=== PATIENT | male | born 1975 | race Hispanic/Latino ===

== ENCOUNTER 2017-03-06 22:04 | Inpatient (IN) | payer SELFPAY ==
[~2017-03-06] VITALS: Ht 165.1 cm; Wt 78.1 kg
[2017-03-06] MEDS ORDERED: CEFAZOLIN SODIUM 1 GM VIAL ONE (22:56)
[2017-03-06] MEDS ORDERED: IBUPROFEN 400 MG TABLET ONE (23:22)
[2017-03-06 23:40] LABS: BASOPHILS % (AUTO) 0.5 % (0.0-5.0); EOSINOPHILS % (AUTO) 0.6 % (0.0-8.0); HEMATOCRIT 44.1 % (42-54); LYMPHOCYTES % (AUTO) 11.9 % (21.0-51.0); MEAN CORPUSCULAR HEMOGLOBIN 30.9 pg (27.0-33.0); MEAN CORPUSCULAR HGB CONC 34.7 g/dL (32.0-36.0); MEAN CORPUSCULAR VOLUME 89.1 fL (79-99); MONOCYTES % (AUTO) 8.1 % (3.0-13.0); NEUTROPHILS % (AUTO) 78.9 % (40.0-77.0); PLATELET COUNT (AUTO) 250 K/uL (130-400); RED BLOOD CELL COUNT(AUTO) 4.94 MIL/uL (4.50-6.20)
[2017-03-06 23:56] LABS: ALBUMIN 3.5 g/dL (3.5-5.0); BILIRUBIN,TOTAL 0.6 mg/dL (0.2-1.0); CREATININE 1.2 mg/dL (0.5-1.5); POTASSIUM 4.1 mmol/L (3.5-5.1); TOTAL PROTEIN, SERUM 7.6 g/dL (6.0-8.3)
[2017-03-07] MEDS ORDERED: SODIUM CHLORIDE 0.9% 1000ML 1,000 ML IV ONE ×3 (00:04→03:34)
[2017-03-07] MEDS ORDERED: INSULIN HUMULIN R 100 UNIT/ML 3ML ONE ×4 (00:05→17:25)
[2017-03-07 00:34] LABS: ABG BASE EXCESS 0.3 mmol/L (-2.0-3.0); ABG HCO3 24.6 mmol/L (21.0-28.0); ABG PCO2 39 mmHg (35-48)
[2017-03-07] MEDS ORDERED: VANCOMYCIN 1GM+NS 250ML 250 ML IV SCH (02:15)
[2017-03-07] MEDS ORDERED: MORPHINE SULFATE 2 MG/ML 1ML SYG IV PRN (02:15)
[2017-03-07] MEDS ORDERED: HYDRALAZINE HCL 20 MG/ML VIAL IV PRN (02:15)
[2017-03-07] MEDS ORDERED: VANCOMYCIN 1GM+NS 250ML 250 ML IV ONE (03:33)
[2017-03-07] MEDS ORDERED: MEROPENEM 1 GM VIAL ONE ×2 (03:33→19:34)
[2017-03-07] MEDS ORDERED: ZOSYN 3.375GM+NS 50ML 50 ML IV SCH (05:00)
[2017-03-07] MEDS: INSULIN HUMULIN R 100 UNIT/ML 3ML SQ SCH ×4 (07:30→22:12)
[2017-03-07] MEDS: FAMOTIDINE 20MG TAB 20 MG TAB PO SCH ×2 (09:00→21:00)
[2017-03-07] MEDS: ENOXAPARIN SODIUM 40 MG/0.4 ML SYRINGE SQ SCH (09:00)
[2017-03-07] MEDS ORDERED: FAMOTIDINE 20MG TAB 20 MG TAB ONE ×2 (09:18→21:44)
[2017-03-07] MEDS ORDERED: ENOXAPARIN SODIUM 40 MG/0.4 ML SYRINGE SQ ONE (09:18)
[2017-03-07] MEDS ORDERED: VANCOMYCIN PROTOCOL PER PHARMACY IV SCH (11:00)
[2017-03-07] MEDS: SODIUM CHLORIDE 0.9% 1000ML 1,000 ML IV SCH ×3 (12:07→23:55)
[2017-03-07] MEDS ORDERED: ACETAMINOPHEN 325 MG TAB ONE (12:30)
[2017-03-07] MEDS ORDERED: SODIUM CHLORIDE 0.9% 500ML 500 ML IV ONE (19:16)
[2017-03-07 21:56] VITALS: BP 142/86
[2017-03-07] MEDS: MEROPENEM 1 GM VIAL IVP SCH (22:00)
[2017-03-07] MEDS: INSULIN GLARGINE 100 UNITS/ML 10 ML VIAL SQ SCH (22:05)
[2017-03-07] MEDS: ACETAMINOPHEN 325 MG TAB PO PRN (22:13)
[2017-03-08] VITALS: BP 125/78
[2017-03-08 04:00] VITALS: BP 118/78
[2017-03-08 04:15] LABS: MEAN CORPUSCULAR HEMOGLOBIN 32.1 pg (27.0-33.0); MEAN CORPUSCULAR HGB CONC 36.4 g/dL (32.0-36.0); MEAN CORPUSCULAR VOLUME 88.2 fL (79-99); PLATELET COUNT (AUTO) 195 K/uL (130-400); RED BLOOD CELL COUNT(AUTO) 4.08 MIL/uL (4.50-6.20)
[2017-03-08 04:27] LABS: CREATININE 0.9 mg/dL (0.5-1.5); POTASSIUM 3.4 mmol/L (3.5-5.1)
[2017-03-08 04:58] LABS: HEMOGLOBIN A1C 9.9 % (4.0-6.0)
[2017-03-08] MEDS: MEROPENEM 1 GM VIAL IVP SCH ×3 (05:09→22:00)
[2017-03-08] MEDS ORDERED: COMPOUND IV REFRIGERATED 1 EACH IVSOLN MISC PRN ×2 (06:00→07:00)
[2017-03-08] MEDS: INSULIN HUMULIN R 100 UNIT/ML 3ML SQ SCH ×4 (06:21→21:26)
[2017-03-08] MEDS ORDERED: VANCOMYCIN 1.25 GM in SODIUM CHLORIDE 0.9% 250 ML IV SCH (06:30)
[2017-03-08] MEDS: VANCOMYCIN 1.75 GM in SODIUM CHLORIDE 0.9% 250 ML IV SCH ×3 (06:55→22:27)
[2017-03-08 07:00] VITALS: BP 130/83
[2017-03-08] MEDS: ENOXAPARIN SODIUM 40 MG/0.4 ML SYRINGE SQ SCH (09:37)
[2017-03-08] MEDS: FAMOTIDINE 20MG TAB 20 MG TAB PO SCH ×2 (09:37→22:00)
[2017-03-08] MEDS: ACETAMINOPHEN 325 MG TAB PO PRN ×2 (09:38→14:36)
[2017-03-08] MEDS: SODIUM CHLORIDE 0.9% 1000ML 1,000 ML IV SCH ×2 (09:49→18:36)
[2017-03-08 11:00] VITALS: BP 128/70
[2017-03-08] MEDS ORDERED: CHLORDIAZEPOXIDE HCL 25 MG CAP PO PRN (11:30)
[2017-03-08 16:00] VITALS: BP 102/63
[2017-03-08] MEDS ORDERED: INSULIN HUMULIN R 100 UNIT/ML 3ML SQ ONE (17:05)
[2017-03-08 20:00] VITALS: BP 101/62
[2017-03-08] MEDS: INSULIN GLARGINE 100 UNITS/ML 10 ML VIAL SQ SCH (21:26)
[2017-03-09] VITALS (7 sets, daily range): BP systolic 98–120; BP diastolic 53–63
[2017-03-09] MEDS: SODIUM CHLORIDE 0.9% 1000ML 1,000 ML IV SCH ×2 (04:32→15:57)
[2017-03-09] MEDS: MEROPENEM 1 GM VIAL IVP SCH (06:02)
[2017-03-09] MEDS: VANCOMYCIN 1.75 GM in SODIUM CHLORIDE 0.9% 250 ML IV SCH ×2 (06:03→14:00)
[2017-03-09] MEDS: ACETAMINOPHEN 325 MG TAB PO PRN ×3 (06:04→23:29)
[2017-03-09] MEDS: INSULIN HUMULIN R 100 UNIT/ML 3ML SQ SCH ×4 (06:37→21:29)
[2017-03-09] MEDS: ENOXAPARIN SODIUM 40 MG/0.4 ML SYRINGE SQ SCH (08:35)
[2017-03-09] MEDS: FAMOTIDINE 20MG TAB 20 MG TAB PO SCH ×2 (08:35→21:01)
[2017-03-09] MEDS ORDERED: CEFEPIME 1GM+NS 50ML 50 ML IV SCH (09:30)
[2017-03-09] MEDS: HONEY 1 APPL/ML TUBE TP SCH (11:07)
[2017-03-09] MEDS: DIPH,PERTUSS(ACELL),TET VAC/PF 0.5 ML VIAL IM SCH (11:08)
[2017-03-09] MEDS: CEFEPIME HCL 1 GM VIAL IVP SCH ×2 (15:43→22:15)
[2017-03-09] MEDS: ONDANSETRON HCL 4 MG/2 ML VIAL IV PRN (15:50)
[2017-03-09] MEDS: CHLORDIAZEPOXIDE HCL 25 MG CAP PO PRN ×2 (15:50→21:01)
[2017-03-09] MEDS: DiphenhydrAMINE HCL 50 MG/ML VIAL IV PRN (17:33)
[2017-03-09] MEDS: [UNRECOGNIZED DRUG - OTHER] IV SCH (17:34)
[2017-03-09] MEDS: VANCOMYCIN IV SCH (17:34)
[2017-03-09] MEDS: INSULIN GLARGINE 100 UNITS/ML 10 ML VIAL SQ SCH (21:27)
[2017-03-10] MEDS: [UNRECOGNIZED DRUG - OTHER] IV SCH ×2 (01:31→09:47)
[2017-03-10] MEDS: VANCOMYCIN IV SCH ×2 (01:31→09:47)
[2017-03-10] MEDS: SODIUM CHLORIDE 0.9% 1000ML 1,000 ML IV SCH ×3 (01:31→20:07)
[2017-03-10 04:00] VITALS: BP 125/86
[2017-03-10] MEDS ORDERED: DOXYCYCLINE 100MG+NS 250ML 250 ML IV ONE (04:07)
[2017-03-10] MEDS: DOXYCYCLINE 100MG+NS 250ML 250 ML IV SCH ×2 (04:42→17:26)
[2017-03-10] MEDS: CEFEPIME HCL 1 GM VIAL IVP SCH ×3 (05:54→22:20)
[2017-03-10] MEDS: INSULIN HUMULIN R 100 UNIT/ML 3ML SQ SCH ×4 (06:17→21:17)
[2017-03-10] MEDS: DIPH,PERTUSS(ACELL),TET VAC/PF 0.5 ML VIAL IM SCH (07:57)
[2017-03-10 08:00] VITALS: BP 103/56
[2017-03-10] MEDS: ENOXAPARIN SODIUM 40 MG/0.4 ML SYRINGE SQ SCH (09:40)
[2017-03-10] MEDS: FAMOTIDINE 20MG TAB 20 MG TAB PO SCH ×2 (09:41→21:13)
[2017-03-10] MEDS: CHLORDIAZEPOXIDE HCL 25 MG CAP PO PRN (09:55)
[2017-03-10] MEDS: HONEY 1 APPL/ML TUBE TP SCH (09:58)
[2017-03-10] MEDS: ACETAMINOPHEN 325 MG TAB PO PRN (10:02)
[2017-03-10] MEDS: ONDANSETRON HCL 4 MG/2 ML VIAL IV PRN (10:09)
[2017-03-10] MEDS ORDERED: GADOBENATE DIMEGLUMINE 20 ML IV ONE (10:18)
[2017-03-10 12:00] VITALS: BP 103/53
[2017-03-10] MEDS: DiphenhydrAMINE HCL 50 MG/ML VIAL IV PRN (14:54)
[2017-03-10] MEDS ORDERED: BENZONATATE 100 MG CAPSULE PO PRN (15:45)
[2017-03-10 16:00] VITALS: BP 119/59
[2017-03-10] MEDS: METHYLPREDNISOLONE SOD SUCC 40MG/ML 1ML IVP SCH ×2 (17:28→21:13)
[2017-03-10 20:01] VITALS: BP 99/52
[2017-03-10] MEDS: INSULIN GLARGINE 100 UNITS/ML 10 ML VIAL SQ SCH (21:18)
[2017-03-10] MEDS: VANCOMYCIN 1GM+NS 250ML 250 ML IV SCH (22:19)
[2017-03-10 23:19] VITALS: BP 98/48
[2017-03-11 04:31] VITALS: BP 91/54
[2017-03-11] MEDS: DOXYCYCLINE 100MG+NS 250ML 250 ML IV SCH ×2 (04:58→17:21)
[2017-03-11] MEDS: VANCOMYCIN 1GM+NS 250ML 250 ML IV SCH (05:54)
[2017-03-11] MEDS: CEFEPIME HCL 1 GM VIAL IVP SCH (05:54)
[2017-03-11] MEDS: INSULIN HUMULIN R 100 UNIT/ML 3ML SQ SCH ×4 (05:56→20:55)
[2017-03-11] MEDS: SODIUM CHLORIDE 0.9% 1000ML 1,000 ML IV SCH ×2 (06:07→16:07)
[2017-03-11 07:00] VITALS: BP 137/82
[2017-03-11] MEDS: DIPH,PERTUSS(ACELL),TET VAC/PF 0.5 ML VIAL IM SCH (07:08)
[2017-03-11] MEDS: GUAIFENESIN SUGAR-FREE 100 MG/5 ML UDCUP PO PRN (07:58)
[2017-03-11] MEDS: FAMOTIDINE 20MG TAB 20 MG TAB PO SCH ×2 (07:59→20:08)
[2017-03-11] MEDS: METHYLPREDNISOLONE SOD SUCC 40MG/ML 1ML IVP SCH ×2 (08:00→20:08)
[2017-03-11] MEDS: ONDANSETRON HCL 4 MG/2 ML VIAL IV PRN ×2 (08:00→21:38)
[2017-03-11] MEDS: ENOXAPARIN SODIUM 40 MG/0.4 ML SYRINGE SQ SCH (08:01)
[2017-03-11] MEDS: HONEY 1 APPL/ML TUBE TP SCH (08:02)
[2017-03-11 11:00] VITALS: BP 114/75
[2017-03-11 15:49] VITALS: BP 115/72
[2017-03-11] MEDS: DiphenhydrAMINE HCL 50 MG/ML VIAL IV PRN (19:15)
[2017-03-11] MEDS ORDERED: INSULIN GLARGINE 100 UNITS/ML 10 ML VIAL SQ ONE (19:42)
[2017-03-11] MEDS: INSULIN GLARGINE 100 UNITS/ML 10 ML VIAL SQ SCH (20:09)
[2017-03-11 20:56] VITALS: BP 118/73
[2017-03-11 23:41] VITALS: BP 101/58
[2017-03-12 04:18] VITALS: BP 124/74
[2017-03-12] MEDS: DOXYCYCLINE 100MG+NS 250ML 250 ML IV SCH (04:50)
[2017-03-12 04:52] LABS: BASOPHILS % (AUTO) 0.7 % (0.0-5.0); EOSINOPHILS % (AUTO) 0.3 % (0.0-8.0); HEMATOCRIT 34.7 % (42-54); LYMPHOCYTES % (AUTO) 9.2 % (21.0-51.0); MEAN CORPUSCULAR HEMOGLOBIN 31.5 pg (27.0-33.0); MEAN CORPUSCULAR HGB CONC 35.8 g/dL (32.0-36.0); MONOCYTES % (AUTO) 7.4 % (3.0-13.0); NEUTROPHILS % (AUTO) 82.4 % (40.0-77.0); PLATELET COUNT (AUTO) 169 K/uL (130-400); RED BLOOD CELL COUNT(AUTO) 3.94 MIL/uL (4.50-6.20); RED CELL DISTRIBUTION WIDTH 12.3 % (11.0-15.5); WHITE BLOOD COUNT (AUTO) 15.7 K/uL (4.8-10.8)
[2017-03-12 05:08] LABS: ALBUMIN 2.3 g/dL (3.5-5.0); BILIRUBIN,TOTAL 0.6 mg/dL (0.2-1.0); CREATININE 0.9 mg/dL (0.5-1.5); POTASSIUM 3.6 mmol/L (3.5-5.1)
[2017-03-12] MEDS: INSULIN HUMULIN R 100 UNIT/ML 3ML SQ SCH ×4 (06:22→21:32)
[2017-03-12] MEDS: DIPH,PERTUSS(ACELL),TET VAC/PF 0.5 ML VIAL IM SCH (06:36)
[2017-03-12 07:00] VITALS: BP 123/74
[2017-03-12] MEDS ORDERED: DiphenhydrAMINE HCL 50 MG/ML VIAL IV SCH (07:00)
[2017-03-12] MEDS: SODIUM CHLORIDE 0.9% 1000ML 1,000 ML IV SCH ×3 (07:09→23:10)
[2017-03-12] MEDS: METHYLPREDNISOLONE SOD SUCC 40MG/ML 1ML IVP SCH ×2 (08:29→21:25)
[2017-03-12] MEDS: FAMOTIDINE 20MG TAB 20 MG TAB PO SCH ×2 (08:30→21:25)
[2017-03-12] MEDS: ENOXAPARIN SODIUM 40 MG/0.4 ML SYRINGE SQ SCH (08:30)
[2017-03-12] MEDS: HONEY 1 APPL/ML TUBE TP SCH (08:32)
[2017-03-12 09:21] LABS: HEPATITIS A ANTIBODY IGM Negative (Negative); HEPATITIS B CORE IGM Negative (Negative); HEPATITIS Bs ANTIGEN SCREEN P Negative (Negative)
[2017-03-12] MEDS: GUAIFENESIN SUGAR-FREE 100 MG/5 ML UDCUP PO PRN (09:25)
[2017-03-12 11:00] VITALS: BP 128/91
[2017-03-12] MEDS: DiphenhydrAMINE HCL 50 MG/ML VIAL IV PRN ×2 (12:16→21:24)
[2017-03-12 17:29] VITALS: BP 114/62
[2017-03-12 19:00] VITALS: BP 120/76
[2017-03-12] MEDS: INSULIN GLARGINE 100 UNITS/ML 10 ML VIAL SQ SCH (21:34)
[2017-03-12 23:00] VITALS: BP 136/86
[2017-03-13] MEDS: GUAIFENESIN SUGAR-FREE 100 MG/5 ML UDCUP PO PRN ×2 (00:10→08:24)
[2017-03-13 03:00] VITALS: BP 131/87
[2017-03-13] MEDS: INSULIN HUMULIN R 100 UNIT/ML 3ML SQ SCH ×4 (06:37→22:17)
[2017-03-13 07:00] VITALS: BP 142/96
[2017-03-13] MEDS: METHYLPREDNISOLONE SOD SUCC 40MG/ML 1ML IVP SCH ×2 (08:21→22:10)
[2017-03-13] MEDS: ENOXAPARIN SODIUM 40 MG/0.4 ML SYRINGE SQ SCH (08:23)
[2017-03-13] MEDS: FAMOTIDINE 20MG TAB 20 MG TAB PO SCH ×2 (08:23→22:11)
[2017-03-13] MEDS: HONEY 1 APPL/ML TUBE TP SCH (08:24)
[2017-03-13] MEDS: SODIUM CHLORIDE 0.9% 1000ML 1,000 ML IV SCH ×2 (08:24→17:45)
[2017-03-13 11:00] VITALS: BP 153/94
[2017-03-13 14:29] LABS: ROCKY MT SPOTTED FEVER IGG <1:64 (Neg:<1:64); TYPHUS FEVER AB IGG <1:64 (Neg:<1:64)
[2017-03-13 16:00] VITALS: BP 150/98
[2017-03-13 19:00] VITALS: BP 136/88
[2017-03-13] MEDS: INSULIN GLARGINE 100 UNITS/ML 10 ML VIAL SQ SCH (22:18)
[2017-03-13 23:00] VITALS: BP 155/86
[2017-03-14 03:00] VITALS: BP 142/89
[2017-03-14 04:16] LABS: MEAN CORPUSCULAR HEMOGLOBIN 31.7 pg (27.0-33.0); MEAN CORPUSCULAR HGB CONC 35.8 g/dL (32.0-36.0); MEAN CORPUSCULAR VOLUME 88.6 fL (79-99); NUCLEATED RED BLOOD CELLS 0.1 % (0.0-0.19); PLATELET COUNT (AUTO) 205 K/uL (130-400); RED BLOOD CELL COUNT(AUTO) 4.06 MIL/uL (4.50-6.20); WHITE BLOOD COUNT (AUTO) 14.3 K/uL (4.8-10.8)
[2017-03-14 04:42] LABS: ALBUMIN 2.5 g/dL (3.5-5.0); BILIRUBIN,TOTAL 0.6 mg/dL (0.2-1.0); CREATININE 0.7 mg/dL (0.5-1.5); POTASSIUM 3.6 mmol/L (3.5-5.1); TOTAL PROTEIN, SERUM 6.1 g/dL (6.0-8.3)
[2017-03-14] MEDS: SODIUM CHLORIDE 0.9% 1000ML 1,000 ML IV SCH ×2 (05:45→13:24)
[2017-03-14] MEDS: INSULIN HUMULIN R 100 UNIT/ML 3ML SQ SCH ×3 (06:37→18:17)
[2017-03-14 07:00] VITALS: BP 166/98
[2017-03-14] MEDS ORDERED: MEDROL DAY 1 BREAKFAST PO NR (07:30)
[2017-03-14] MEDS: FAMOTIDINE 20MG TAB 20 MG TAB PO SCH (09:56)
[2017-03-14] MEDS: METHYLPREDNISOLONE SOD SUCC 40MG/ML 1ML IVP SCH (09:56)
[2017-03-14] MEDS: HONEY 1 APPL/ML TUBE TP SCH (09:57)
[2017-03-14] MEDS: ENOXAPARIN SODIUM 40 MG/0.4 ML SYRINGE SQ SCH (09:57)
[2017-03-14 11:00] VITALS: BP 160/91
[2017-03-14] MEDS ORDERED: METHYLPREDNISOLONE 4 MG TABLET PO SCH (13:15)
[2017-03-14 16:00] VITALS: BP 158/98
[2017-03-14] MEDS: MEDROL DAY 1 LUNCH AND DINNER PO NR ×2 (18:02→18:03)
[2017-03-14] MEDS ORDERED: MEDROL DAY1 HS PO NR (21:00)
[2017-03-15] MEDS ORDERED: MEDROL DAY 2 BRK PO NR (07:30)
[2017-03-15] MEDS ORDERED: MEDROL DAY 2 LCH PO NR (11:30)
[2017-03-15] MEDS ORDERED: MEDROL DAY 2 DIN PO NR (16:30)
[2017-03-15] MEDS ORDERED: MEDROL DAY 2 HS PO NR (21:00)
[2017-03-16] MEDS ORDERED: MEDROL DAY 3 PO NR (07:30)
[2017-03-17] MEDS ORDERED: MEDROL DAY 4 BKF PO NR (07:30)
[2017-03-17] MEDS ORDERED: MEDROL DAY 4 LCH PO NR (11:30)
[2017-03-17] MEDS ORDERED: MEDROL DAY 4 DIN PO NR (16:30)
[2017-03-18] MEDS ORDERED: MEDROL DAY 5 BKF PO NR (07:30)
[2017-03-18] MEDS ORDERED: MEDROL DAY 5 HS PO NR (21:00)
[2017-03-19] MEDS ORDERED: MEDROL DAY 6 PO NR (07:30)
== END 2017-03-14 18:35 | disposition home or self-care (01) | DRG 872 ==
LOC: EDH 22:04 → EDHIP 22:05 → 3DH 03-07 21:30
PROVIDERS: ADMIT Family Medicine; ATTEND Family Medicine
PROC: 3E0234Z Introduction of Serum, Toxoid and Vaccine into Muscle, Percutaneous Approach (ICD-10-PCS; principal; 2017-03-09)
DX: A41.9 Sepsis, unspecified organism (principal); L51.1 Stevens-Johnson syndrome; E11.621 Type 2 diabetes mellitus with foot ulcer; E11.65 Type 2 diabetes mellitus with hyperglycemia; E87.1 Hypo-osmolality and hyponatremia; L03.116 Cellulitis of left lower limb; L97.429 Non-pressure chronic ulcer of left heel and midfoot with unspecified severity; D64.9 Anemia, unspecified; E66.01 Morbid (severe) obesity due to excess calories; F10.20 Alcohol dependence, uncomplicated; I10 Essential (primary) hypertension; L27.0 Generalized skin eruption due to drugs and medicaments taken internally; Z68.28 Body mass index [BMI] 28.0-28.9, adult; Z91.19 Patient's noncompliance with other medical treatment and regimen; Z23 Encounter for immunization; Z83.3 Family history of diabetes mellitus; Z82.49 Family history of ischemic heart disease and other diseases of the circulatory system
CPT/HCPCS: 36415; 36600; 73620; 73720; 80048; 80053; 80074; 80202; 82009; 82595; 82803; 82948; 83036; 83735; 85025; 85027; 86038; 86215; 86235; 86255; 86431; 86757; 87040; 87804; 90715; A4218; A9577; G0480; J0690; J0692; J1200; J1650; J1815; J2185; J2405; J2920; J3370; J3490; J7030; J7040; J7509